=== PATIENT | male | born 1975 | race African-American/Black ===

== ENCOUNTER 2018-07-29 05:15 | Inpatient (IN) ==
[2018-07-29] MEDS ORDERED: ASPIRIN ONE (05:36)
[2018-07-29] MEDS ORDERED: ASPIRIN PO ONE (05:37)
[2018-07-29 06:13] LABS: BASO# 0.02 X1000 (0.0-0.2); BASO% 0.3 % (0.0-0.8); EOS# 0.23 X1000 (0.0-0.7); EOS% 3.4 % (0.0-10.0); HEMATOCRIT 46.9 % (42.0-52.0); HEMOGLOBIN 16.5 g/dL (14.0-18.0); LYMPH# 2.36 X1000 (1.2-3.4); LYMPH% 35.3 % (20.5-51.1); MCH 32.5 PG (27-31); MCHC 35.2 g/dL (33-37); MCV 92.3 FL (81-99); MONO# 0.47 X1000 (0.11-0.59); NEUT# 3.61 X1000 (1.4-6.5); PLT 257 X1000 (130-400); RBC 5.08 XMIL (4.7-6.1); RDW 12.8 % (11.5-14.5); WBC 6.69 X1000 (4.8-10.8)
[2018-07-29 06:16] LABS: INR 0.86; PROTIME 12.4 Seconds (11.0-16.0); PTT 27.9 Seconds (22.3-41.8)
[2018-07-29] MEDS ORDERED: APRESOLINE IV ONE (06:27)
[2018-07-29] MEDS ORDERED: LASIX IV ONE (06:27)
--- NOTE | 2018-07-29 06:34 | PROVIDER DOCUMENTATION ---
HPI-Cardiac General - General Chief Complaint: Shortness of Breath Stated Complaint: SOB Time Seen by Provider: 07/29/18 06:15 Source: patient Allergies/Adverse Reactions: Patient Allergies Allergy/AdvReac Type Severity Reaction Status Date / Time No Known Allergies Allergy Verified 05/31/12 04:34 Home Medications: Home Medication List Medication Instructions Recorded Confirmed Last Taken Type Hydrocodone/Acetaminophen [Lortab 1 each PO Q6H PRN PRN #5 tablet 05/31/12 Unknown Rx 5-500 Tablet] Ketorolac [Toradol] 10 mg PO TID #10 tablet 05/31/12 Unknown Rx Orphenadrine [Norflex] 100 mg PO BID #10 tablet 05/31/12 Unknown Rx - History of Present Illness-Cardiac Nature of Presenting Problem: PT NOTICED BEING SOB PAST 3 DAYS WITH CENTRAL CHEST PRESSURE. DENIES [place] , N/V, . DENIES ANY KNOWLEDGE OF ANY HYPERTENSION OR ASTHMA OR LUNG DISEASE OR ANY HEALTH PROBLEM. KNDA. Severity in ED: moderate Timing: still present Palpitation Quality: N/A Nitro Today/Relief: reports: no nitro taken today Aspirin Treatment Today: reports: no aspirin today Prior Chest Pain/Cardiac Workup: reports: no prior chest pain Similar Symptoms Previously?: No Recently Seen Here or By Another Healthcare Provider: No Review of Systems - Adult - REVIEW OF SYSTEMS - ADULT Constitutional: reports: no symptoms reported. denies: chills, fever Eyes: reports: no symptoms reported Ears, Nose, Mouth & Throat: reports: no symptoms reported Cardiovascular: reports: see HPI. denies: edema, heart murmur, irregular heart rate Respiratory: reports: see HPI, shortness of breath Gastrointestinal: reports: no symptoms reported Genitourinary: reports: no symptoms reported Musculoskeletal: reports: no symptoms reported. denies: back pain Integumentary: reports: no symptoms reported Neurological: reports: no symptoms reported Psychiatric: reports: no symptoms reported Endocrine: reports: no symptoms reported Hematologic/Lymphatic: reports: no symptoms reported Allergic/Immunologic: reports: no symptoms reported All Other Systems: Reviewed and Negative Past History - Adult - PAST MEDICAL HISTORY-ADULT Review of Records: reports: Nursing Assessment Review, Medications Reviewed, Social history reviewed & non-contributory. Major Childhood Illnesses: reports: denies history Cardiovascular: reports: denies history Respiratory: reports: denies history Gastrointestinal: reports: denies history Obstetrical/Gynecological: reports: denies history Genitourinary: reports: denies history Musculoskeletal: reports: denies history Neurological: reports: denies history Endocrine/Immune: reports: denies history Other Conditions: reports: denies history Physical Exam-General - PHYSICAL EXAM-ADULT Initial Vital Signs Reviewed: Yes (HIGH BP) - CONSTITUTIONAL General Appearance: appears well, alert, no apparent distress, anxious - EYES Eyes: PERRL/EOMI - HEAD, EARS, NOSE, MOUTH & THROAT HENMT: moist mucous membranes - NECK Neck: full range of motion, supple - RESPIRATORY Respiratory: chest non-tender, lungs clear, normal breath sounds. negative: stridor, wheezing - CARDIOVASCULAR Cardiovascular: normal peripheral pulses, regular rate, rhythm, no edema, no murmur - GASTROINTESTINAL (ABDOMEN) Abdominal Exam: normal bowel sounds, non tender, soft - MUSCULOSKELETAL Extremity: normal range of motion, non-tender, normal gait, normal inspection, no pedal edema, no calf tenderness - SKIN Integumentary: normal color, normal turgor, warm/dry - NEUROLOGIC Neurologic: probation officer II-XII nml as tested, grossly normal, no motor/sensory deficits - PSYCHIATRIC Psych/Mental Status: normal mood/affect, normal thought content, normal thought process, oriented x 3 - HEART Score HEART Score: History: Slightly Suspicious HEART Score: ECG: Non-Specific Repolarization Disturbance/LBBB/PM HEART Score: Age: < or = 45 Years HEART Score: Risk Factors for Atherosclerotic Disease: No Risk Factors Known HEART Score: Troponin: < or = Normal Limit Total HEART Score:: 1 Progress - PLAN OF CARE/RESULTS Progress/Plan/Lab Results: Vital Signs - 8 hr 07/29/18 05:20 07/29/18 06:13 07/29/18 06:20 Temperature 99.0 F Pulse Rate 87 91 H 94 H Respiratory Rate 14 23 23 Blood Pressure 208/136 O2 Sat by Pulse Oximetry 96 97 98 07/29/18 06:30 07/29/18 06:40 07/29/18 06:50 Temperature Pulse Rate 81 88 82 Respiratory Rate 17 20 22 Blood Pressure O2 Sat by Pulse Oximetry 96 96 94 L 07/29/18 07:00 07/29/18 07:10 07/29/18 07:20 Temperature Pulse Rate 68 65 83 Respiratory Rate 16 14 25 H Blood Pressure O2 Sat by Pulse Oximetry 96 95 95 Laboratory Results - last 24 hr 07/29/18 07/29/18 07/29/18 05:50 05:50 05:50 WBC 6.69 RBC 5.08 Hgb 16.5 Hct 46.9 MCV 92.3 MCH 32.5 H MCHC 35.2 RDW Std Deviation 12.8 Plt Count 257 MPV 10.0 Immature Gran % (Auto) 0.0 Neut % (Auto) 54.0 Lymph % (Auto) 35.3 [place] % (Auto) 7.0 Eos % (Auto) 3.4 Baso % (Auto) 0.3 Immature Gran # (Auto) 0.00 Neut # (Auto) 3.61 Lymph # (Auto) 2.36 [place] # (Auto) 0.47 Eos # (Auto) 0.23 Baso # (Auto) 0.02 PT INR PTT (Actin FS) Sodium 142 Potassium 3.6 Chloride 104 Carbon Dioxide 24 L Anion Gap 14 BUN 14 Creatinine 1.7 H Estimated GFR/1.73 m2 53 BUN/Creatinine Ratio 8 Glucose 100 Calculated Osmolality 284 Calcium 8.8 Total Bilirubin 0.50 AST 21 ALT 27 Alkaline Phosphatase 71 Creatine Kinase 164 Troponin T Mnd-D-Khjjlioynej Pept 3847 H Total Protein 7.4 Albumin 4.1 Globulin 3.3 Albumin/Globulin Ratio 1.2 07/29/18 07/29/18 05:50 05:50 WBC RBC Hgb Hct MCV MCH MCHC RDW Std Deviation Plt Count MPV Immature Gran % (Auto) Neut % (Auto) Lymph % (Auto) [place] % (Auto) Eos % (Auto) Baso % (Auto) Immature Gran # (Auto) Neut # (Auto) Lymph # (Auto) [place] # (Auto) Eos # (Auto) Baso # (Auto) PT 12.4 INR 0.86 PTT (Actin FS) 27.9 Sodium Potassium Chloride Carbon Dioxide Anion Gap BUN Creatinine Estimated GFR/1.73 m2 BUN/Creatinine Ratio Glucose Calculated Osmolality Calcium Total Bilirubin AST ALT Alkaline Phosphatase Creatine Kinase Troponin T 0.022 Rfg-W-Xmtnyqudzge Pept Total Protein Albumin Globulin Albumin/Globulin Ratio Orders Category Date Time Status Cardiac Monitoring DIRECTED Care 07/29/18 05:38 Active Oxygen Therapy- ED Nursing DIRECTED Care 07/29/18 05:38 Active Saline Loc NOW Care 07/29/18 05:38 Active CHEST-2 VIEWS [RAD] Stat Exams 07/29/18 05:38 Completed CBC WITH ELECTRONIC DIFF [HEME] Stat Lab 07/29/18 05:50 Completed CK PROFILE [SP CHEM] Stat Lab 07/29/18 05:50 Completed COMPREHENSIVE METABOLIC PANEL [CHEM] Stat Lab 07/29/18 05:50 Completed PRO B-NATRIURETIC PEPTIDE Stat Lab 07/29/18 05:50 Completed PROTIME WITH INR [COAG] Stat Lab 07/29/18 05:50 Completed PTT [COAG] Stat Lab 07/29/18 05:50 Completed TROPONIN T Stat Lab 07/29/18 05:50 Completed Aspirin Med 07/29/18 05:36 Discontinued 325 mg .ROUTE .STK-MED ONE Aspirin Med 07/29/18 05:37 Discontinued 325 mg PO NOW ONE Furosemide [Lasix] Med 07/29/18 06:27 Discontinued 40 mg IV NOW ONE Hydralazine [Apresoline] Med 07/29/18 06:27 Discontinued 10 mg IV NOW ONE CP/SOB/Palp >45 yrs of Age Stat Oth 07/29/18 05:37 Ordered EKG [EKG] Stat Ther 07/29/18 05:38 Draft Result Diagrams: 07/29/18 05:50 07/29/18 05:50 - REASSESSMENT Reassessment #1 Time Reassessed: 09:10 Status: improving (mild improvement, but still dyspneic.) Reassessment Comment: Assumed care with plan for disposition pending reeval - EKG 1 Time of EKG reading by physician:: 05:27 EKG Read and Signed by:: Betito Banda EKG Interpretation (*Must complete 3 of following elements*): Abnormal Rate: 95 Rhythm: NSR [place]: left FL Interval: normal ST Wave: non-specific ST changes Comments: NSR,LAD,SL LONG QT - XRAY 1 XRAY Study: Chest Impression: Abnormal (WELL EXPANDED, MILD CARDIOMEGALLY, PUL VASC REDISTRIBUTION.) - CHANGE OF SHIFT REPORT (ED Provider) 1 Report Given and Care Transferred to:: DR ESTRELLA Time of Transfer: 07:00 Departure - Departure Date of Disposition Decision: 07/29/18 Time of Disposition Decision: 09:11 DIAGNOSIS: Congestive cardiac failure Qualifiers: Heart failure type: unspecified Heart failure chronicity: acute Qualified Code(s): I50.9 - Heart failure, unspecified Disposition: ADMITTED INPATIENT 09 Certified Medical Emergency: Emergent Condition: Serious Referrals and Follow-Ups: None,PCP [Primary Care Provider] - Discharge Education: Tobacco Use Disorder, Steps to Quit Smoking - Critical Care Note This patient required my direct & personal management of CC.: No Attestation - Physician/ CHRISTIANNE Attestation Patient care was provided by Advanced Practice Provider:: No The physician spent face to face time with patient:: Yes Advanced Practice Provider documentation review:: Supervising physician onsite and consulted in the evaluation and care of this patient. The physician did have a face to face encounter with the patient.
--- NOTE | 2018-07-29 06:42 | Diag Imaging Result Doc PS360 ---
CHEST-2 VIEWS - 07/29/2018 INDICATION: SOB COMPARISON: 06/24/2010 FINDINGS: There is cardiomegaly and pulmonary vascular congestion. There is ill-defined infiltrate in the lung bases along with curly B lines. No pneumothorax or pleural effusion. There are several displaced rib fractures at the lateral left chest wall. This appears to involve the fourth, fifth, and sixth ribs. IMPRESSION: 1. Cardiomegaly, pulmonary vascular congestion, pulmonary edema. 2. Displaced lateral left rib fractures. Electronically signed by Jamel Sandoval 07/29/2018 6:40 AM
[2018-07-29 06:49] LABS: ALB/GLOB RATIO 1.2; ALBUMIN 4.1 g/dL (3.5-5.0); CALCIUM 8.8 mg/dL (8.8-10.2); CREATININE 1.7 mg/dL (0.7-1.2); POTASSIUM 3.6 mmol/L (3.5-5.1); TOTAL BILIRUBIN 0.5 mg/dL (0.20-1.00); TOTAL PROTEIN 7.4 g/dL (6.3-8.3)
--- NOTE | 2018-07-29 07:17 | EKG Report ---
Test Performed on : 07/29/2018 05:27:03 AM Test Reason : sob Blood Pressure : / mmHG Vent. Rate : 095 BPM Atrial Rate : 095 BPM P-R Int : 138 ms QRS Dur : 098 ms QT Int : 376 ms P-R-T Axes : 056 -38 069 degrees QTc Int : 472 ms Normal sinus rhythm. Left atrial enlargement Left axis deviation Nonspecific T wave abnormality Prolonged QT Abnormal ECG When compared with ECG of 24-JUN-2010 11:28, Vent. rate has increased BY 39 BPM QT has lengthened Unconfirmed Result
[2018-07-29] MEDS ORDERED: APRESOLINE PO PRN (09:49)
[2018-07-29] MEDS ORDERED: ZOFRAN IV PRN (09:59)
[2018-07-29] MEDS ORDERED: PRINIVIL PO ONE (09:59)
[2018-07-29] MEDS ORDERED: TYLENOL PO PRN (09:59)
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
[2018-07-29 10:16] LABS: URINE SOURCE CLEAN CATCH
[2018-07-29] MEDS: HEPARIN SUBQ SCH ×2 (10:21→22:26)
[2018-07-29 10:26] LABS: ALLEN TEST YES; BE 1.6 mmoll (-3.0-3.0); BLOOD TYPE ARTERIAL; METHB 0.9 % (0.0-1.5); O2(CT) 21.9 mL/dL (15.0-23.0); O2HB 93.7 % (95.0-99.0); PCO2(98.6) 34 mmHg (35-45); PO2(98.6) 79 mmHg (60-100); SAMPLE BLOOD; SAO2 97.8 % (95.0-100.0); THB 16.6 g/dL (11.5-17.4); pH(98.6) 7.47 (7.35-7.45)
[2018-07-29 10:30] LABS: BILIRUBIN URINE NEGATIVE (NEGATIVE); BLOOD URINE NEGATIVE (NEGATIVE); COLOR YELLOW; GLUCOSE URINE NEGATIVE (NEGATIVE); KETONE URINE NEGATIVE (NEGATIVE); LEUKOCYTES URINE NEGATIVE (NEGATIVE); NITRITE URINE NEGATIVE (NEGATIVE); PH URINE 6.5; PROTEIN URINE TRACE mg/dL (NEGATIVE); SP GRAVITY URINE 1.006; TURBIDITY URINE CLEAR (CLEAR); UROBILINOGEN URINE NORMAL (NORMAL)
[2018-07-29 10:32] LABS: UR EPITHELIAL CELLS <10 /HPF (<10); URINE BACTERIA NEGATIVE /HPF; URINE RBC <10 /HPF (<10); URINE WBC <10 /HPF (<10)
[2018-07-29 10:40] LABS: UR AMPHETAMINES QUAL NONE DETECTED (NONE DETECT); UR BARBITUATES QUAL NONE DETECTED (NONE DETECT); UR BENZODIAZEPIN QUAL NONE DETECTED (NONE DETECT); UR CANNABINOIDS QUAL PRESUMPTIVE POSITIVE (NONE DETECT); UR COCAINE QUAL PRESUMPTIVE POSITIVE (NONE DETECT); UR METHADONE QUAL NONE DETECTED (NONE DETECT); UR OPIATES QUAL NONE DETECTED (NONE DETECT); UR OXYCODONE QUAL NONE DETECTED (NONE DETECT); UR PCP QUAL NONE DETECTED (NONE DETECT)
[2018-07-29] MEDS: APRESOLINE PO SCH ×2 (12:35→17:09)
[2018-07-29] MEDS: NORVASC PO SCH (12:35)
[2018-07-29] MEDS ORDERED: PRINIVIL PO SCH (21:00)
--- NOTE | 2018-07-29 22:12 | ECHO REPORT ---
ORDER DATE: 07/29/2018 MEASUREMENTS: Septal thickness 1.2, left ventricular internal diameter in diastole 5.7, posterior wall thickness 1.2, aortic root 3.1, left atrium 4.1. SUMMARY: 1. Adequate quality study. 2. The aortic valve is trileaflet and opens normally on 2-dimensional images. Peak gradient across the aortic valve is less than 10 mmHg. Mitral, tricuspid and pulmonic valves are without evidence of structural abnormality with trace pulmonic insufficiency. The aortic root is normal in size. 3. Borderline left ventricular enlargement with mild concentric left ventricular hypertrophy is demonstrated. Estimated left ventricular ejection fraction is approximately 35% to 40%. Global hypokinesis is demonstrated. Left atrium is mildly enlarged. The right atrium and right ventricle are normal in size, with normal right ventricular systolic function. 4. No pericardial effusion. 5. Appearance of inferior vena cava suggests normal central venous pressure. cc: MD Emily Mohamud CRNP
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
[2018-07-30 06:56] LABS: EOS% 4.3 % (0.0-10.0); HEMATOCRIT 47.9 % (42.0-52.0); HEMOGLOBIN 16.8 g/dL (14.0-18.0); MCH 32.4 PG (27-31); MCHC 35.1 g/dL (33-37); MCV 92.3 FL (81-99); MONO% 9.9 % (1.7-9.3); NEUT% 38.3 % (42.2-75.2); PLT 255 X1000 (130-400); RBC 5.19 XMIL (4.7-6.1); RDW 12.6 % (11.5-14.5); WBC 4.15 X1000 (4.8-10.8)
[2018-07-30 06:57] LABS: BASO# 0.02 X1000 (0.0-0.2); BASO% 0.5 % (0.0-0.8); EOS# 0.18 X1000 (0.0-0.7); LYMPH# 1.95 X1000 (1.2-3.4); MONO# 0.41 X1000 (0.11-0.59); NEUT# 1.59 X1000 (1.4-6.5)
[2018-07-30 06:58] LABS: HEMOGLOBIN A1C 5.1 % (4.8-6.0)
[2018-07-30 07:07] LABS: PROTIME 12.5 Seconds (11.0-16.0)
[2018-07-30 07:08] LABS: INR 0.87
[2018-07-30 07:09] LABS: ALBUMIN 3.8 g/dL (3.5-5.0); CALCIUM 9.7 mg/dL (8.8-10.2); CREATININE 1.8 mg/dL (0.7-1.2); POTASSIUM 3.2 mmol/L (3.5-5.1); PTT 31.5 Seconds (22.3-41.8); TOTAL BILIRUBIN 0.47 mg/dL (0.20-1.00); TOTAL PROTEIN 7.6 g/dL (6.3-8.3)
--- NOTE | 2018-07-30 07:16 | EKG Report ---
Test Performed on : 07/30/2018 06:45:58 AM Test Reason : chest pain Blood Pressure : / mmHG Vent. Rate : 081 BPM Atrial Rate : 081 BPM P-R Int : 142 ms QRS Dur : 092 ms QT Int : 394 ms P-R-T Axes : 063 -40 075 degrees QTc Int : 457 ms Normal sinus rhythm. Possible Left atrial enlargement Left axis deviation T wave abnormality, consider lateral ischemia Abnormal ECG When compared with ECG of 29-JUL-2018 05:27, (Unconfirmed) Nonspecific T wave abnormality now evident in Anterior leads Confirmed by Steve ROMERO, Jemal Yee ([id number]) on 08/03/2018 12:41:04 PM
[2018-07-30 07:21] LABS: FREE T4 1.18 ng/dL (0.93-1.70); TSH 1.79 uIUmL (0.27-4.20)
--- NOTE | 2018-07-30 08:27 | Diag Imaging Result Doc PS360 ---
CHEST-2 VIEWS - 07/30/2018 INDICATION: f/u on pulmonary edema COMPARISON: 07/29/2018 FINDINGS: There has been essentially complete resolution of the interstitial pulmonary edema. Pulmonary vascularity has improved as well. Stable mild cardiomegaly. No pneumothorax or pleural effusion. On this exam, the left-sided rib fractures appear more likely to be chronic deformities than recent fractures. IMPRESSION: Significant improvement from prior. Electronically signed by Jamel Sandoval 07/30/2018 8:25 AM
[2018-07-30] MEDS ORDERED: COZAAR PO SCH (09:00)
[2018-07-30] MEDS: HEPARIN SUBQ SCH (09:52)
[2018-07-30] MEDS: NORVASC PO SCH (09:52)
[2018-07-30] MEDS: APRESOLINE PO SCH ×2 (09:52→12:38)
--- NOTE | 2018-07-30 10:43 | PROGRESS NOTE ---
DATE: 07/29/2018 SUBJECTIVE: Mr. Hale has not had any further chest pain. He said he had a bowel movement and he feels better. OBJECTIVE: Vital Signs: Temperature 98.3 degrees, pulse 80, respirations 18, blood pressure 167/99. HEENT: Pupils are equal and round. Lungs: Clear in all lung antonio. Cardiovascular: Regular rate without murmur or S3. Abdomen: Soft. Skin: Warm and dry. Genitourinary: Urine output 1000 mL. IMAGING: Chest x-ray significant improvement, essentially complete resolution of interstitial pulmonary edema. Pulmonary vascularity improved as well. No pneumothorax. ASSESSMENT AND PLAN: Cardiology has evaluated, had significant hypertension and found to have some pulmonary hypertension. His urine output is improved. His creatinine is at 1.7-1.8. Blood pressure is doing a little better. I think he had a myocardial perfusion scan. He said had a heart study, I do not know that I see that. He had his echocardiogram borderline left ventricular enlargement, mild concentric left ventricular hypertrophy, ejection fraction approximately 35%- 40%, global hypokinesis. We will discuss with Cardiology. I have counseled him on the importance of no more cocaine and we need to control his blood pressure. cc: Vasiliy Venegas MD
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
[2018-07-30 15:36] VITALS: BP 163/104
[2018-07-30] MEDS ORDERED: NORVASC PO SCH (21:00)
[2018-07-30] MEDS ORDERED: LIPITOR PO SCH (21:00)
[2018-07-30] MEDS ORDERED: COREG PO SCH (21:00)
--- NOTE | 2018-07-30 21:52 | CARDIOLOGY PROGRESS NOTE ---
DATE: 07/30/2018 SUBJECTIVE: Mr. Hale reports he is feeling much better today. He has no edema. He denies any orthopnea. No chest pain. PHYSICAL EXAMINATION: Vital Signs: He is afebrile. Heart rate 83. His most recent blood pressure is 163/100. His systolics have been in the 160s to 170s more recently. His I's and O's are difficult to track given the fact that he has a number of continent voids that were not measured. General: No acute distress. Cardiovascular: He is in a regular rate and rhythm. He has no murmurs, no S3, no lower extremity edema. Chest: Sounds clear bilaterally. He has no increased work of breathing. Abdomen: Soft and nontender. PERTINENT DATA: His telemetry is unremarkable. His lab data shows a white count of 4.1, hematocrit 47, platelet count 255,000. His sodium is 140, potassium 3.2, his BUN is 18, creatinine is 1.8. His LDL was 210 with an HDL of 46. His TSH and free T4 were normal. ASSESSMENT: Mr. Hale is a 43-year-old gentleman with new onset heart failure. PLAN: Most likely, this is hypertensive or possible cocaine induced. I have adjusted his medications with adding in Coreg at 6.25 b.i.d. as well as furosemide 20 mg daily and Lipitor 40 mg nightly, given his markedly elevated LDL. [facility] From my standpoint, he is okay to be discharged. He is on an angiotensin receptor bryant, beta bryant, a loop diuretic, as well as a statin presently, and amlodipine. He has been made aware of his need for a beta bryant with his current heart issues, and his necessary avoidance of cocaine, and the potential complications that could arise from use of cocaine while being on a beta bryant. He is aware of this. cc: Anup Hilton MD
[2018-07-31] MEDS ORDERED: LASIX PO SCH (09:00)
== END 2018-07-30 18:19 | disposition home or self-care (01) | DRG 292 ==
LOC: ED 05:15 → 4N 10:10
PROVIDERS: ATTEND Emergency Medicine
CPT/HCPCS: 71020; 71046; 80053; 80061; 80101; 80301; 80307; 80324; 80345; 80346; 80353; 80358; 80361; 80365; 81001; 82550; 82607; 82746; 82805; 83036; 83721; 83735; 83880; 83992; 84439; 84443; 84484; 85025; 85610; 85730; 93005; 93010; 93306; 94760; 94799; 96374; 96375; 99285; A9270; G0431; G0434; G0479; G0480; J0360; J1644; J1940

== ENCOUNTER 2018-10-23 21:46 | Inpatient (IN) ==
[2018-10-23] MEDS ORDERED: ASPIRIN PO ONE (22:00)
[2018-10-23 22:11] LABS: BASO# 0.02 X1000 (0.0-0.2); BASO% 0.2 % (0.0-0.8); EOS# 0.04 X1000 (0.0-0.7); EOS% 0.4 % (0.0-10.0); HEMOGLOBIN 13.3 g/dL (14.0-18.0); IMM GRAN# 0.02 X1000 (0.0-0.04); IMM GRAN% 0.2 % (0.0-0.5); LYMPH# 1.74 X1000 (1.2-3.4); LYMPH% 17.6 % (20.5-51.1); MCH 31.1 PG (27-31); MCV 88.8 FL (81-99); MONO# 1.03 X1000 (0.11-0.59); MONO% 10.4 % (1.7-9.3); MPV 9.8 FL (7.4-10.4); NEUT# 7.02 X1000 (1.4-6.5); NEUT% 71.2 % (42.2-75.2); PLT 470 X1000 (130-400); RBC 4.28 XMIL (4.7-6.1); RDW 11.7 % (11.5-14.5); WBC 9.87 X1000 (4.8-10.8)
[2018-10-23] MEDS ORDERED: NITROGLYCERIN TOP ONE (22:12)
[2018-10-23] MEDS ORDERED: LABETALOL IV ONE (22:12)
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
[2018-10-23 22:38] LABS: ALBUMIN 3.4 g/dL (3.5-5.0); CALCIUM 9.1 mg/dL (8.8-10.2); CREATININE 1.7 mg/dL (0.7-1.2); POTASSIUM 4.5 mmol/L (3.5-5.1); TOTAL BILIRUBIN 1.1 mg/dL (0.20-1.00); TOTAL PROTEIN 6.9 g/dL (6.3-8.3)
[2018-10-23 23:50] LABS: UR AMPHETAMINES QUAL NONE DETECTED (NONE DETECT); UR BARBITUATES QUAL NONE DETECTED (NONE DETECT); UR BENZODIAZEPIN QUAL NONE DETECTED (NONE DETECT); UR CANNABINOIDS QUAL PRESUMPTIVE POSITIVE (NONE DETECT); UR COCAINE QUAL PRESUMPTIVE POSITIVE (NONE DETECT); UR METHADONE QUAL NONE DETECTED (NONE DETECT); UR METHAMPHETAMINE QUAL NONE DETECTED (NONE DETECT); UR OPIATES QUAL NONE DETECTED (NONE DETECT); UR OXYCODONE QUAL NONE DETECTED (NONE DETECT); UR PCP QUAL NONE DETECTED (NONE DETECT); UR PROPOXYPHENE QUAL NONE DETECTED (NONE DETECT); UR TCA QUAL NONE DETECTED (NONE DETECT)
[2018-10-24] MEDS ORDERED: LASIX IV ONE (00:26)
[2018-10-24] MEDS ORDERED: LEVAQUIN 750 MG/D5W 750 MG/150 ML IVPB IV ONE (00:28)
[2018-10-24] MEDS ORDERED: VANCOMYCIN 1 GM/NS 1 GM/250 ML IVPB IV ONE ×2 (00:32→05:30)
--- NOTE | 2018-10-24 02:59 | EKG Report ---
Test Performed on : 10/23/2018 9:50:27 PM Test Reason : cp Blood Pressure : / mmHG Vent. Rate : 116 BPM Atrial Rate : 116 BPM P-R Int : 138 ms QRS Dur : 088 ms QT Int : 316 ms P-R-T Axes : 056 -50 105 degrees QTc Int : 439 ms Sinus tachycardia. Left atrial enlargement Left axis deviation Left ventricular hypertrophy ST & T wave abnormality, consider lateral ischemia Abnormal ECG When compared with ECG of 30-JUL-2018 06:45, No significant change was found Unconfirmed Result
[2018-10-24] MEDS ORDERED: NS 1,000 ML IV ONE (03:47)
[2018-10-24] MEDS ORDERED: VANCOMYCIN IV PER PHARMACY MISC SCH (04:00)
--- NOTE | 2018-10-24 07:14 | Diag Imaging Result Doc PS360 ---
CHEST-2 VIEWS - 10/23/2018 INDICATION: cp COMPARISON: 07/30/2018 FINDINGS: There is moderate cardiomegaly. Pulmonary vascularity is top normal. There is dense multilobar infiltrate throughout the right lung. The left lung is grossly clear. No pneumothorax or pleural effusion. IMPRESSION: 1. Dense multilobar infiltrates throughout the right lung. The appearance is most compatible with pneumonia. Atypical pulmonary edema is also possible. 2. Moderate cardiomegaly. Electronically signed by Jamel Sandoval 10/24/2018 7:12 AM
[2018-10-24] MEDS ORDERED: PRINIVIL PO ONE (10:28)
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
[2018-10-24] MEDS ORDERED: LASIX PO SCH (10:30)
[2018-10-24] MEDS ORDERED: APRESOLINE PO SCH (10:45)
[2018-10-24] MEDS ORDERED: COREG PO SCH (10:45)
[2018-10-24 11:21] VITALS: BP 149/94
--- NOTE | 2018-10-24 15:50 | HISTORY AND PHYSICAL ---
ADDENDUM: Patient was seen and examined by myself. Full note dictated and discussed with nurse practitioner. Patient presented to the hospital with chest pain. Thankfully, it resolved. His blood pressure is noted to be markedly elevated. Unfortunately, he has a known history of cocaine use. He also apparently has not been taking his home medications. PLAN: We are going to admit him the hospital, rule out DC. Follow his blood pressures. Further orders as needed. cc: Beto High MD
--- NOTE | 2018-10-24 16:08 | DISCHARGE SUMMARY ---
ADMISSION DATE: 10/24/2018 DISCHARGE DATE: 10/24/2018 PRIMARY CARE PHYSICIAN: None. ADMISSION DIAGNOSIS: 1. Chest pain. 2. Right multilobar pneumonia. 3. Cocaine abuse. 4. Marijuana abuse. 5. Tobacco abuse. 6. History of congestive heart failure with last known echocardiogram on 07/29/2018 that showed an ejection fraction of 35 to 40 percent. 7. Chronic kidney disease stage 3B. DISCHARGE DIAGNOSIS: 1. Chest pain resolved. 2. A right multilobar pneumonia. 3. Cocaine abuse. 4. Marijuana abuse. 5. Tobacco abuse. 6. History of congestive heart failure with last known ejection fraction of 35 to 40 percent. 7. Chronic kidney disease stage 3B. SUMMARY OF FINDINGS: This is a 43-year-old male who presented to the ER with complaints of mild sharp pain in his chest, anxiety and tachycardia for the last 2 to 3 days that began after he used and snorted cocaine. His urine drug screen was positive for cocaine and cannabinoids. He was admitted. We discussed at length the perils of drug, alcohol and tobacco abuse in the setting of his congestive heart failure with his ejection fraction of 35 to 40 percent and he verbalized understanding and stated that he did want to quit. We also discussed his medication regimen. He has not been taking any medications and was discharged from the hospital back in July of this year with a congestive heart failure exacerbation but states that he was unable to obtain it. We discussed that if he got his prescriptions filled at [facility] he could get a 90 day supply for 10 dollars. We made some adjustments to those medication so that he can afford them. We also placed him on Levaquin 500 mg p.o. daily for 10 days for his pneumonia and it was felt that he could safely be discharged home. NEW DISCHARGE MEDICATIONS: Coreg 6.25 mg p.o. q.12 hours #180 with 3 refills, Lasix 20 mg p.o. daily #90 with 3 refills, hydralazine 25 mg p.o. t.i.d. #270 with 3 refills, Levaquin 500 mg p.o. daily #10 with no refills, lisinopril 20 mg p.o. daily #90 with 3 refills and lovastatin 20 mg p.o. daily #90 with 3 refills. All discharge instructions have been reviewed with the patient and he verbalized understanding. FOLLOWUP: We gave him the number to [facility] for followup in the next 1 to 2 weeks and he verbalized understanding to contact the office to make an appointment. TIME SPENT: 35 minutes. Dictated by MARIE Wallace for Beto High MD cc: MARIE Wallace MD
[2018-10-24] MEDS ORDERED: MEVACOR PO SCH (17:00)
--- NOTE | 2018-10-24 19:43 | DISCHARGE SUMMARY ---
ADMISSION DATE: 10/24/2018 DISCHARGE DATE: 10/24/2018 DISCHARGE DIAGNOSES: 1. Chest pain, resolved. 2. Cocaine use. 3. Marijuana use. 4. Chronic tobacco abuse. 5. Hypertension. 6. History of high cholesterol. 7. History of congestive heart failure, systolic. 8. Medical noncompliance due to financial issues. CONSULTATIONS: None. PROCEDURES: None. BRIEF HOSPITAL COURSE: Patient was admitted to the hospital. Started back on his home blood pressure medications which he does admit that he was not taking secondary to finances. Unfortunately, he has been affording a different lifestyle with cocaine, marijuana, and occasional alcohol as well as cigarettes. He had an uneventful hospital course. On discharge, his chest pain is resolved. All of his symptoms have improved. He is overall feeling better and, therefore, he will be discharged home. He does have pneumonia, and we will start him on antibiotics. DISPOSITION: We changed his antibiotic to Levaquin which is 6 dollars at [facility]. We also changed his blood pressure medications and cholesterol medication to the 4 dollar list at [facility]. This will include lisinopril, Coreg, pravastatin. Discussed with patient the importance of compliance. cc: Beto High MD
[2018-10-25] MEDS ORDERED: LEVAQUIN 750 MG/D5W 750 MG/150 ML IVPB IV SCH (01:00)
[2018-10-25] MEDS ORDERED: VANCOMYCIN 1,550 MG in NS 250 ML IV SCH (01:00)
== END 2018-10-24 13:47 | disposition home or self-care (01) | DRG 313 ==
LOC: P.ED 21:46 → P.MEDSURG 10-24 05:18
PROVIDERS: ATTEND Family Medicine